=== PATIENT | female | born 1950 | race Caucasian/White ===

== ENCOUNTER 2023-03-02 18:27 | Inpatient (IN) | payer OTHER ==
[~2023-03-02] VITALS: Ht 160 cm; Wt 74.0 kg
[2023-03-02 19:17] LABS: Basophils # (auto) 0 10 ^3/uL (0-0.2); Basophils % (auto) 0.4 % (0.0-2.0); Eosinophils # (auto) 0.1 10 ^3/uL (0-0.8); Eosinophils % (auto) 0.5 % (0.0-7.0); Hemoglobin 14.7 g/dL (12.2-16.2); Lymphocytes # (auto) 0.5 10 ^3/uL (0.4-5.4); Lymphocytes % (auto) 4.2 % (10.0-50.0); Mean Corpuscular Hemoglobin 30.7 pg (28.0-32.0); Mean Corpuscular Hgb Conc. 32.7 g/dL (32.0-36.0); Monocytes # (auto) 0.5 10 ^3/uL (0-1.3); Neutrophils # (auto) 11.2 10 ^3/uL (1.6-8.6); Neutrophils % (auto) 90.9 % (37.0-80.0); Red Blood Cells 4.78 10^6/uL (4.0-5.20); Red Cell Distribution Width 15.2 % (11.8-14.3); White Blood Cell 12.3 10^3/uL (4.4-10.8)
[2023-03-02 19:30] VITALS: PULSE 91; RESP 17; O2SAT 97
[2023-03-02 19:32] LABS: INR 1.04 (0.9-1.15); Prothrombin Time 10.9 sec (9.3-11.8)
[2023-03-02 19:39] LABS: Alanine Aminotransferase 11 U/L (7-40); Albumin 4.5 g/dL (3.2-4.8); Alkaline Phosphatase 142 U/L (46-116); Anion Gap 9 (5-15); Aspartate Aminotransferase 18 U/L (13-40); BUN/Creatinine Ratio 13.3 (10.0-20.0); Bilirubin, Total 0.9 mg/dL (0.2-1.0); Blood Urea Nitrogen 8 mg/dL (9-23); Calcium 10.1 mg/dL (8.5-10.1); Carbon Dioxide 27 mmol/L (20-30); Chloride 104 mmol/L (98-107); Glucose 210 mg/dL (74-106); Potassium 3.2 mmol/L (3.5-5.1); Sodium 140 mmol/L (136-145); Total Protein 6.9 g/dL (5.7-8.2)
[2023-03-02] MEDS ORDERED: NITROGLYCERIN 0.4 MG SL TAB SL PRN (22:30)
[2023-03-02] MEDS ORDERED: ONDANSETRON HCL 4 MG/2 ML VIAL IV PRN (22:30)
[2023-03-02] MEDS ORDERED: HYDROmorphone HCL 2 MG/ML VL/or syr IV PRN (22:30)
[2023-03-02] MEDS ORDERED: DOCUSATE SOD 100 MG CAP PO PRN (22:30)
[2023-03-02] MEDS ORDERED: DEXTROSE (50%) 50ML SYRG IV ONE (22:30)
[2023-03-03] VITALS (8 sets, daily range): BP systolic 138–170; BP diastolic 75–86; PULSE 69–105; RESP 16–22; TEMP 98.2–99.4; O2SAT 93–97
[2023-03-03] MEDS ORDERED: ONDANSETRON HCL 4 MG/2 ML VIAL IV ONE (00:30)
[2023-03-03] MEDS ORDERED: HYDROmorphone HCL 2 MG/ML VL/or syr IV ONE (00:30)
[2023-03-03] MEDS: SODIUM CHLORIDE 0.9% 1,000 ML IV SCH ×2 (00:30→15:10)
[2023-03-03] MEDS ORDERED: ALLO300T2 PO (03:20)
[2023-03-03] MEDS ORDERED: LORA-1121 PO (03:20)
[2023-03-03] MEDS ORDERED: ERGO1CAP12 PO (03:20)
[2023-03-03] MEDS ORDERED: METO-159 PO (03:20)
[2023-03-03] MEDS ORDERED: OXYC20TA72 PO (03:20)
[2023-03-03] MEDS ORDERED: REPA0.5T5 PO (03:20)
[2023-03-03] MEDS ORDERED: PANT40T PO (03:20)
[2023-03-03] MEDS ORDERED: CLOP75TA70 PO (03:20)
[2023-03-03] MEDS ORDERED: EMPA1TAB3 PO (03:20)
[2023-03-03] MEDS ORDERED: ATOR-47 PO (03:20)
[2023-03-03] MEDS ORDERED: ASPI81CH59 PO (03:21)
[2023-03-03] MEDS ORDERED: POTASSIUM CHL 20 Meq TABLET PO ONE (04:30)
[2023-03-03] MEDS: HYDROmorphone HCL 2 MG/ML VL/or syr IV PRN ×5 (06:28→21:03)
[2023-03-03] MEDS ORDERED: InsuLIN REG 1unit/0.01ml Soln (100units/ml) SC ONE (07:00)
[2023-03-03] MEDS ORDERED: ACCU-CHEK COMFORT CURVE STRIP VI ONE (07:00)
[2023-03-03 07:19] LABS: Basophils # (auto) 0 10 ^3/uL (0-0.2); Basophils % (auto) 0.4 % (0.0-2.0); Eosinophils # (auto) 0.3 10 ^3/uL (0-0.8); Eosinophils % (auto) 2.7 % (0.0-7.0); Hemoglobin 14.2 g/dL (12.2-16.2); Lymphocytes # (auto) 0.9 10 ^3/uL (0.4-5.4); Lymphocytes % (auto) 9.3 % (10.0-50.0); Mean Corpuscular Hemoglobin 31.3 pg (28.0-32.0); Mean Corpuscular Volume 95.1 fL (80.0-100.0); Monocytes # (auto) 0.7 10 ^3/uL (0-1.3); Monocytes % (auto) 7.8 % (0.0-12.0); Neutrophils # (auto) 7.4 10 ^3/uL (1.6-8.6); Neutrophils % (auto) 79.8 % (37.0-80.0); Red Blood Cells 4.53 10^6/uL (4.0-5.20); Red Cell Distribution Width 15.3 % (11.8-14.3); White Blood Cell 9.3 10^3/uL (4.4-10.8)
[2023-03-03 07:26] LABS: Alkaline Phosphatase 119 U/L (46-116); Anion Gap 11 (5-15); Aspartate Aminotransferase 19 U/L (13-40); Bilirubin, Total 1.5 mg/dL (0.2-1.0); Calcium 9.6 mg/dL (8.5-10.1); Carbon Dioxide 24 mmol/L (20-30); Chloride 104 mmol/L (98-107); Cholesterol 131 mg/dL (< 200); Glucose 134 mg/dL (74-106); HDL Cholesterol 40 mg/dL (40-59); LDL Cholesterol 68 mg/dL (< 100); Potassium 3.1 mmol/L (3.5-5.1); Sodium 139 mmol/L (136-145); Total Protein 6.3 g/dL (5.7-8.2); Triglycerides 190 mg/dL (< 150)
[2023-03-03 07:29] LABS: Alanine Aminotransferase < 9 U/L (7-40); BUN/Creatinine Ratio 11.6 (10.0-20.0); Blood Urea Nitrogen < 5 mg/dL (9-23)
[2023-03-03] MEDS: ENOXAPARIN SOD 40 MG/0.4 ML SYRINGE SC SCH ×2 (09:50→10:06)
[2023-03-03] MEDS: CYCLOBENZAPRINE HCL 10 MG TAB PO PRN ×2 (10:13→18:50)
[2023-03-03] MEDS: HYDROcodone-ACET 5/325MG TAB PO PRN ×3 (11:00→23:29)
[2023-03-03] MEDS ORDERED: Ensure HIGH Protein Chocolate 8oz Bottle PO SCH (12:00)
[2023-03-03] MEDS: Glucerna Carbsteady SHAKE Vanilla 8oz PO SCH ×2 (12:00→18:37)
[2023-03-03] MEDS ORDERED: DEXTROSE (50%) 50ML SYRG IV PRN (18:15)
[2023-03-03] MEDS ORDERED: METOPROLOL TARTRATE 50 MG TAB ONE (21:13)
[2023-03-03] MEDS: METOPROLOL TARTRATE 50 MG TAB PO SCH (21:14)
[2023-03-03] MEDS: InsuLIN REG 1unit/0.01ml Soln (100units/ml) SC SCH (22:00)
[2023-03-03] MEDS: ACCU-CHEK COMFORT CURVE STRIP VI SCH (22:00)
[2023-03-04] VITALS (7 sets, daily range): BP systolic 141–165; BP diastolic 80; PULSE 72–97; RESP 18–22; TEMP 98.1–98.9; O2SAT 94–99
[2023-03-04] MEDS: HYDROmorphone HCL 2 MG/ML VL/or syr IV PRN ×6 (00:58→20:05)
[2023-03-04] MEDS: CYCLOBENZAPRINE HCL 10 MG TAB PO PRN ×2 (03:20→12:54)
[2023-03-04] MEDS: InsuLIN REG 1unit/0.01ml Soln (100units/ml) SC SCH ×4 (06:09→22:02)
[2023-03-04] MEDS: ACCU-CHEK COMFORT CURVE STRIP VI SCH ×4 (06:09→21:55)
[2023-03-04] MEDS: HYDROcodone-ACET 5/325MG TAB PO PRN ×3 (06:26→21:52)
[2023-03-04] MEDS: Glucerna Carbsteady SHAKE Vanilla 8oz PO SCH ×3 (08:00→17:24)
[2023-03-04] MEDS: ENOXAPARIN SOD 40 MG/0.4 ML SYRINGE SC SCH (10:00)
[2023-03-04] MEDS: ATORVASTATIN 20 MG TAB PO SCH (10:14)
[2023-03-04] MEDS: SODIUM CHLORIDE 0.9% 1,000 ML IV SCH (10:14)
[2023-03-04] MEDS: METOPROLOL TARTRATE 50 MG TAB PO SCH ×2 (10:14→21:49)
[2023-03-04] MEDS ORDERED: ceFAZolin 2 GM/D5W100ml 100 ML IV ONE (14:14)
[2023-03-04] MEDS ORDERED: EPINEPHrine HCL 1 MG/1 ML AMP ONE (14:23)
[2023-03-04] MEDS ORDERED: ONDANSETRON HCL 4 MG/2 ML VIAL ONE (14:23)
[2023-03-04] MEDS ORDERED: DexAMETHasone SOD PHOS 10MG/1ML VIAL INJ ONE (14:23)
[2023-03-04] MEDS ORDERED: GLYCOPYRROLATE 0.2 MG/ML 1ML VIAL ONE (14:23)
[2023-03-04] MEDS ORDERED: PROPOFOL 10 MG/ML 20 ML IV ONE (14:23)
[2023-03-04] MEDS ORDERED: LIDOCAINE 2% (LOCAL ANESTH.) PF 5ml SDV ONE (14:23)
[2023-03-04] MEDS ORDERED: KETOROLAC TROMETH 30 MG/ML 1ML VIAL ONE (14:23)
[2023-03-04] MEDS ORDERED: SODIUM CHLORIDE LOCK 10 ML ONE (14:28)
[2023-03-04] MEDS ORDERED: DexAMETHasone SOD PHOS 4 MG/1ML SDV INJ ONE (14:32)
[2023-03-04] MEDS ORDERED: MIDAZOLAM HCL 2MG/2ML 2ml VIAL (1mg/ml) ONE (14:40)
[2023-03-04] MEDS ORDERED: LIDOCAINE 2% JELLY 11ml (GLYDO) ONE (14:56)
[2023-03-04] MEDS ORDERED: fentaNYL CITRATE 100 MCG/2 ML VL ONE (15:13)
[2023-03-04] MEDS ORDERED: HYDROmorphone HCL 2 MG/ML VL/or syr ONE (16:14)
[2023-03-04] MEDS ORDERED: FLUMAZENIL 0.1 MG/ML INJ 10ML MDV IV PRN (16:15)
[2023-03-04] MEDS ORDERED: hydrALAZINE HCL 20 MG/ML VL IV PRN ×2 (16:15→17:30)
[2023-03-04] MEDS ORDERED: fentaNYL CITRATE 100 MCG/2 ML VL IV PRN (16:15)
[2023-03-04] MEDS ORDERED: ePHEDrine SULFATE 50 MG/ML AMP IV PRN (16:15)
[2023-03-04] MEDS ORDERED: NALOXONE HCL 0.4 MG/ML VIAL IV PRN (16:15)
[2023-03-04] MEDS ORDERED: LABETALOL HCL 5 MG/ML 4ML SYRINGE IV PRN (16:15)
[2023-03-04] MEDS ORDERED: ONDANSETRON HCL 4 MG/2 ML VIAL IV PRN (16:15)
[2023-03-04] MEDS ORDERED: oxyCODONE HCL 5MG TAB PO PRN (16:15)
[2023-03-04] MEDS ORDERED: ceFAZolin 1GM/50ML 50 ML IV ONE (21:41)
[2023-03-04] MEDS: ceFAZolin 1GM/50ML 50 ML IV SCH (21:51)
[2023-03-05] VITALS (8 sets, daily range): BP systolic 150–159; BP diastolic 74–86; PULSE 68–100; RESP 16–20; TEMP 96.8–98.6; O2SAT 94–98
[2023-03-05] MEDS: SODIUM CHLORIDE 0.9% 1,000 ML IV SCH ×2 (00:30→21:45)
[2023-03-05] MEDS: CYCLOBENZAPRINE HCL 10 MG TAB PO PRN ×3 (00:51→21:40)
[2023-03-05] MEDS: HYDROmorphone HCL 2 MG/ML VL/or syr IV PRN ×6 (00:52→23:23)
[2023-03-05] MEDS: HYDROcodone-ACET 5/325MG TAB PO PRN ×4 (02:56→21:40)
[2023-03-05 06:12] LABS: Basophils # (auto) 0 10 ^3/uL (0-0.2); Eosinophils # (auto) 0 10 ^3/uL (0-0.8); Hematocrit 38.1 % (36.0-46.0); Hemoglobin 12.8 g/dL (12.2-16.2); Lymphocytes # (auto) 0.5 10 ^3/uL (0.4-5.4); Mean Corpuscular Hemoglobin 31.6 pg (28.0-32.0); Mean Corpuscular Hgb Conc. 33.5 g/dL (32.0-36.0); Mean Corpuscular Volume 94.3 fL (80.0-100.0); Monocytes # (auto) 0.4 10 ^3/uL (0-1.3); Monocytes % (auto) 4.4 % (0.0-12.0); Neutrophils # (auto) 7.9 10 ^3/uL (1.6-8.6); Neutrophils % (auto) 89.6 % (37.0-80.0); Red Blood Cells 4.04 10^6/uL (4.0-5.20); Red Cell Distribution Width 15.1 % (11.8-14.3); White Blood Cell 8.8 10^3/uL (4.4-10.8)
[2023-03-05] MEDS ORDERED: ceFAZolin 1GM/50ML 50 ML IV ONE ×2 (06:18→13:56)
[2023-03-05] MEDS: ACCU-CHEK COMFORT CURVE STRIP VI SCH ×4 (06:20→21:40)
[2023-03-05] MEDS: ceFAZolin 1GM/50ML 50 ML IV SCH ×2 (06:20→13:59)
[2023-03-05] MEDS: InsuLIN REG 1unit/0.01ml Soln (100units/ml) SC SCH ×4 (06:27→21:44)
[2023-03-05] MEDS: Glucerna Carbsteady SHAKE Vanilla 8oz PO SCH ×3 (07:38→17:42)
[2023-03-05] MEDS: ATORVASTATIN 20 MG TAB PO SCH (09:45)
[2023-03-05] MEDS: METOPROLOL TARTRATE 50 MG TAB PO SCH ×2 (09:46→21:40)
[2023-03-05] MEDS: ENOXAPARIN SOD 40 MG/0.4 ML SYRINGE SC SCH (09:46)
[2023-03-05] MEDS ORDERED: EMPAGLIFLOZIN 10 MG TAB ONE (11:50)
[2023-03-05] MEDS: EMPAGLIFLOZIN 10 MG TAB PO SCH (12:02)
[2023-03-06] VITALS (7 sets, daily range): BP systolic 122–163; BP diastolic 64–82; PULSE 69–86; RESP 16–19; TEMP 97.8–98.6; O2SAT 94–97
[2023-03-06] MEDS: HYDROcodone-ACET 5/325MG TAB PO PRN ×4 (02:51→23:13)
[2023-03-06] MEDS: HYDROmorphone HCL 2 MG/ML VL/or syr IV PRN ×4 (04:46→20:47)
[2023-03-06] MEDS: CYCLOBENZAPRINE HCL 10 MG TAB PO PRN ×2 (06:29→15:01)
[2023-03-06] MEDS: ACCU-CHEK COMFORT CURVE STRIP VI SCH ×4 (06:29→20:52)
[2023-03-06] MEDS: InsuLIN REG 1unit/0.01ml Soln (100units/ml) SC SCH ×4 (06:53→20:54)
[2023-03-06] MEDS: Glucerna Carbsteady SHAKE Vanilla 8oz PO SCH ×3 (07:45→17:29)
[2023-03-06] MEDS: ENOXAPARIN SOD 40 MG/0.4 ML SYRINGE SC SCH (09:14)
[2023-03-06] MEDS: ATORVASTATIN 20 MG TAB PO SCH (09:15)
[2023-03-06] MEDS: METOPROLOL TARTRATE 50 MG TAB PO SCH ×2 (09:16→20:54)
[2023-03-06] MEDS: EMPAGLIFLOZIN 10 MG TAB PO SCH (09:16)
[2023-03-06] MEDS ORDERED: amLODIPine BESYLATE 5 MG TAB PO ONE (14:00)
[2023-03-06 15:14] LABS: Albumin 3.7 g/dL (3.2-4.8); Alkaline Phosphatase 88 U/L (46-116); Anion Gap 6 (5-15); Aspartate Aminotransferase 15 U/L (13-40); Bilirubin, Total 0.9 mg/dL (0.2-1.0); Blood Urea Nitrogen 11 mg/dL (9-23); Carbon Dioxide 28 mmol/L (20-30); Chloride 111 mmol/L (98-107); Glucose 116 mg/dL (74-106); Potassium 3.1 mmol/L (3.5-5.1); Total Protein 5.7 g/dL (5.7-8.2)
[2023-03-06 15:15] LABS: Alanine Aminotransferase < 9 U/L (7-40); Sodium 145 mmol/L (136-145)
[2023-03-07] VITALS (7 sets, daily range): BP systolic 123–149; BP diastolic 69–76; PULSE 77–88; RESP 16–20; TEMP 98.2–98.8; O2SAT 91–96
[2023-03-07] MEDS: HYDROmorphone HCL 2 MG/ML VL/or syr IV PRN ×6 (01:31→20:41)
[2023-03-07] MEDS: ACCU-CHEK COMFORT CURVE STRIP VI SCH ×4 (06:04→20:41)
[2023-03-07] MEDS: InsuLIN REG 1unit/0.01ml Soln (100units/ml) SC SCH ×4 (06:08→21:46)
[2023-03-07] MEDS: Glucerna Carbsteady SHAKE Vanilla 8oz PO SCH ×3 (08:00→18:00)
[2023-03-07] MEDS: EMPAGLIFLOZIN 10 MG TAB PO SCH (09:51)
[2023-03-07] MEDS: SODIUM CHLORIDE 0.9% 1,000 ML IV SCH ×2 (09:52→19:10)
[2023-03-07] MEDS: METOPROLOL TARTRATE 50 MG TAB PO SCH ×2 (09:53→20:41)
[2023-03-07] MEDS: amLODIPine BESYLATE 5 MG TAB PO SCH (09:53)
[2023-03-07] MEDS: ATORVASTATIN 20 MG TAB PO SCH (09:54)
[2023-03-07] MEDS: ENOXAPARIN SOD 40 MG/0.4 ML SYRINGE SC SCH (09:54)
[2023-03-08] MEDS: HYDROcodone-ACET 5/325MG TAB PO PRN ×3 (00:38→15:00)
[2023-03-08] MEDS: HYDROmorphone HCL 2 MG/ML VL/or syr IV PRN (05:04)
[2023-03-08 05:25] VITALS: BP 158/89; PULSE 76; RESP 19; TEMP 98.4; O2SAT 94
[2023-03-08] MEDS: ACCU-CHEK COMFORT CURVE STRIP VI SCH ×2 (05:58→11:38)
[2023-03-08] MEDS: InsuLIN REG 1unit/0.01ml Soln (100units/ml) SC SCH ×2 (05:58→11:41)
[2023-03-08 08:00] VITALS: PULSE 71; PULSE 86; RESP 16; O2SAT 96
[2023-03-08] MEDS: Glucerna Carbsteady SHAKE Vanilla 8oz PO SCH ×2 (08:00→12:00)
[2023-03-08 09:00] VITALS: BP 146/76; PULSE 91; RESP 18; TEMP 98.2; O2SAT 97
[2023-03-08] MEDS: ATORVASTATIN 20 MG TAB PO SCH (10:06)
[2023-03-08] MEDS: METOPROLOL TARTRATE 50 MG TAB PO SCH (10:06)
[2023-03-08] MEDS: EMPAGLIFLOZIN 10 MG TAB PO SCH (10:07)
[2023-03-08] MEDS: amLODIPine BESYLATE 5 MG TAB PO SCH (10:07)
[2023-03-08] MEDS: ENOXAPARIN SOD 40 MG/0.4 ML SYRINGE SC SCH (10:08)
[2023-03-08] MEDS: SODIUM CHLORIDE 0.9% 1,000 ML IV SCH (11:50)
[2023-03-08 13:19] VITALS: BP 146/76; PULSE 91; RESP 19; TEMP 36.8; O2SAT 92
== END 2023-03-08 15:45 | DRG 482 ==
LOC: ER 18:27 → TELE 22:37 → TELE-CENTR 03-03 03:03
PROVIDERS: ADMIT Nurse Practitioner; ATTEND Nurse Practitioner
PROC: 0QS704Z Reposition Left Upper Femur with Internal Fixation Device, Open Approach (ICD-10-PCS; principal; 2023-03-04 15:01)
DX: S72.142A Displaced intertrochanteric fracture of left femur, initial encounter for closed fracture (principal); M10.9 Gout, unspecified; E11.65 Type 2 diabetes mellitus with hyperglycemia; I25.10 Atherosclerotic heart disease of native coronary artery without angina pectoris; M19.90 Unspecified osteoarthritis, unspecified site; W18.39XA Other fall on same level, initial encounter; I10 Essential (primary) hypertension; E78.5 Hyperlipidemia, unspecified; G89.29 Other chronic pain; K80.20 Calculus of gallbladder without cholecystitis without obstruction; Z87.442 Personal history of urinary calculi; I25.2 Old myocardial infarction; Z79.02 Long term (current) use of antithrombotics/antiplatelets; Z79.82 Long term (current) use of aspirin; Z79.84 Long term (current) use of oral hypoglycemic drugs; Z79.899 Other long term (current) drug therapy; Z82.0 Family history of epilepsy and other diseases of the nervous system; Z82.49 Family history of ischemic heart disease and other diseases of the circulatory system; Z85.72 Personal history of non-Hodgkin lymphomas; Z98.41 Cataract extraction status, right eye; Y93.89 Activity, other specified; Y92.89 Other specified places as the place of occurrence of the external cause; Y99.8 Other external cause status; Z88.5 Allergy status to narcotic agent; Z88.2 Allergy status to sulfonamides
CPT/HCPCS: 36415; 70450; 71045; 71250; 72125; 73120; 73502; 73700; 74176; 76000; 80053; 80061; 82962; 83036; 83880; 85025; 85610; 85730; 93306; 97110; 97116; 97163; 97530; A4565; G0378; J0171; J1100; J1815; J1885; J2001; J2250; J2405; J2704

== ENCOUNTER 2023-06-27 09:58 | Inpatient (IN) | payer OTHER ==
[~2023-06-27] VITALS: Ht 162.6 cm; Wt 69.8 kg
[2023-06-27] VITALS (9 sets, daily range): BP systolic 93–114; BP diastolic 51–68; PULSE 90–122; RESP 11–22; TEMP 98.1–98.2; O2SAT 96
[~2023-06-27 09:58] MED LIST: ALLO300T2 PO; ASPI81CH59 PO; ATOR-47 PO; CLOP75TA70 PO; EMPA1TAB3 PO; ERGO1CAP12 PO; LORA-1121 PO; METO-159 PO; OXYC20TA72 PO; PANT40T PO; REPA0.5T5 PO
[2023-06-27] MEDS: levoFLOXacin 750MG 150 ML IV ONE ×2 (10:49→10:56)
[2023-06-27] MEDS: VANCOMYCIN 1GM/200ML 200 ML IV ONE ×2 (10:49→11:00)
[2023-06-27] MEDS: SODIUM CHLORIDE 0.9% 2,000 ML IV ONE (10:56)
[2023-06-27 11:15] LABS: Basophils # (auto) 0 10 ^3/uL (0-0.2); Eosinophils # (auto) 0 10 ^3/uL (0-0.8); Lymphocytes # (auto) 0.2 10 ^3/uL (0.4-5.4); Monocytes # (auto) 0.5 10 ^3/uL (0-1.3); Red Blood Cells 2.35 10^6/uL (4.0-5.20)
[2023-06-27 11:30] LABS: Eosinophils % (auto) 0.7 % (0.0-7.0); Hematocrit 22.6 % (36.0-46.0); Lymphocytes % (auto) 2.6 % (10.0-50.0); Mean Corpuscular Hemoglobin 29.3 pg (28.0-32.0); Mean Corpuscular Hgb Conc. 30.6 g/dL (32.0-36.0); Mean Corpuscular Volume 95.9 fL (80.0-100.0); Monocytes % (auto) 7.8 % (0.0-12.0); Neutrophils # (auto) 5.9 10 ^3/uL (1.6-8.6); Neutrophils % (auto) 88.9 % (37.0-80.0); Red Cell Distribution Width 17.9 % (11.8-14.3); White Blood Cell 6.6 10^3/uL (4.4-10.8)
[2023-06-27 11:35] LABS: Hemoglobin 6.9 g/dL (12.2-16.2)
[2023-06-27 11:43] LABS: INR 1.48 (0.9-1.15); Partial Thromboplastin Time 47.6 SEC (24.5-34.5); Prothrombin Time 15.1 sec (9.3-11.8)
[2023-06-27 12:00] LABS: Amphetamine Screen, Urine Neg (NEGATIVE); Barbiturate Scree,Urine Neg (NEGATIVE); Benzodiazephine Screen, Urine Neg (NEGATIVE); Cannabinoid Screen, Urine Neg (NEGATIVE); Cocaine Screen, Urine Neg (NEGATIVE); Opiate Scree,Urine Neg (NEGATIVE); Phencyclidine Screen, Urine Neg (NEGATIVE)
[2023-06-27 12:10] LABS: Urine Bacteria FEW /hpf (None Seen); Urine Blood 1+ /uL (Negative); Urine Clarity Clear (Clear); Urine Color Light-Yellow (Yellow); Urine Hyaline Cast FEW /lpf (0 - 2); Urine Protein, UAD 1+ (Negative); Urine Urobilinogen Normal (Negative); Urine WBC 26 /hpf (0 - 5); Urine pH 5.5 (5.0-9.0)
[2023-06-27 12:29] LABS: Chloride 101 mmol/L (98-107); Potassium 3.3 mmol/L (3.5-5.1); Sodium 141 mmol/L (136-145)
[2023-06-27 12:32] LABS: Anion Gap 20 (5-15); Calcium 9.3 mg/dL (8.5-10.1); Carbon Dioxide 20 mmol/L (20-30)
[2023-06-27 12:37] LABS: Alkaline Phosphatase 118 U/L (46-116); Blood Alcohol < 3.0 mg/dL (<10); Blood Urea Nitrogen 41 mg/dL (9-23); Glucose 362 mg/dL (74-106)
[2023-06-27 12:39] LABS: Albumin 3.6 g/dL (3.2-4.8); Aspartate Aminotransferase 13 U/L (13-40); Bilirubin, Total 0.6 mg/dL (0.2-1.0); Total Protein 5.6 g/dL (5.7-8.2)
[2023-06-27 12:43] LABS: Alanine Aminotransferase < 9 U/L (7-40)
[2023-06-27 14:12] LABS: Triglycerides 516 mg/dL (< 150)
[2023-06-27 14:14] LABS: Cholesterol 219 mg/dL (< 200); HDL Cholesterol 17 mg/dL (40-59)
[2023-06-27] MEDS ORDERED: MORPHINE SULFATE INJ 2 MG/ml SYRG IV PRN (16:45)
[2023-06-27] MEDS: SODIUM CHLORIDE 0.9% 1,000 ML IV SCH ×2 (16:45→23:00)
[2023-06-27] MEDS ORDERED: DEXTROSE (50%) 50ML SYRG IV PRN ×2 (16:45→19:00)
[2023-06-27] MEDS ORDERED: NITROGLYCERIN 0.4 MG SL TAB SL PRN (16:45)
[2023-06-27] MEDS: InsuLIN REG 1unit/0.01ml Soln (100units/ml) SC SCH (17:27)
[2023-06-27] MEDS: ACCU-CHEK COMFORT CURVE STRIP VI SCH ×2 (17:27→19:00)
[2023-06-27] MEDS: InsuLIN REG 1unit/0.01ml Soln (100units/ml) ONE (17:29)
[2023-06-27] MEDS: PIPERACILLIN-TAZOB 3.375GM 100 ML IV ONE (17:30)
[2023-06-27] MEDS: OXYCODONE W/ ACETAMINOPHEN 5/325MG TABLET PO ONE (17:32)
[2023-06-27] MEDS ORDERED: POTASSIUM CHL 20MEQ/100ML 200 ML IV PRN (19:00)
[2023-06-27] MEDS: INSULIN DRIP 100 UNIT/100ML 100 ML IV SCH (19:00)
[2023-06-27 19:14] LABS: Magnesium 2.6 mg/dL (1.6-2.6)
[2023-06-27 19:16] LABS: Phosphorus 3.2 mg/dL (2.4-5.1)
[2023-06-27] MEDS: PANTOPRAZOLE 40mg/50ML NS AE 50 ML IV ONE (19:48)
[2023-06-27 20:17] LABS: Base Excess -8.4 mmol/L (-2.0-2.0)
[2023-06-27] MEDS: D5W/SOD CHL 0.45%/KCL 20MEQ 1,000 ML IV ONE (20:23)
[2023-06-27] MEDS: D5W/SOD CHL 0.45%/KCL 20MEQ 1,000 ML IV SCH (20:24)
[2023-06-27] MEDS: MAGNESIUM SULFATE 1GM/100ML 100 ML IV ONE (20:32)
[2023-06-27] MEDS: MAGNESIUM SULFATE 1GM/100ML 200 ML IV ONE (20:33)
[2023-06-27] MEDS: INSULIN LANTUS (GLARGINE) 1 /0.01ml (100units/ml) SC ONE ×2 (20:54→20:57)
[2023-06-27] MEDS: INSULIN DRIP 100 UNIT/100ML 100 ML IV ONE (20:55)
[2023-06-27] MEDS ORDERED: LORazepam 2MG/ML-1ML VIAL IV PRN (22:00)
[2023-06-28] VITALS: BP 102/53; PULSE 96; RESP 21; TEMP 98
[2023-06-28 00:45] VITALS: BP 102/55; PULSE 96; RESP 17; TEMP 98.1
[2023-06-28] MEDS: SODIUM CHLORIDE 0.9% 1,000 ML IV SCH (01:07)
[2023-06-28] MEDS: INSULIN DRIP 100 UNIT/100ML 100 ML IV SCH (01:27)
[2023-06-28] MEDS: ACCU-CHEK COMFORT CURVE STRIP VI SCH ×2 (01:46→18:19)
[2023-06-28] MEDS: D5W/SOD CHL 0.45%/KCL 20MEQ 1,000 ML IV ONE ×2 (01:59→07:34)
[2023-06-28] MEDS: PIPERACILLIN-TAZOB 3.375GM 100 ML IV ONE (02:03)
[2023-06-28] MEDS: PIPERACILLIN-TAZOB 3.375GM 100 ML IV SCH (02:09)
[2023-06-28 06:11] LABS: Albumin 3.2 g/dL (3.2-4.8); Alkaline Phosphatase 110 U/L (46-116); Anion Gap 11 (5-15); Aspartate Aminotransferase 11 U/L (13-40); Calcium 9.5 mg/dL (8.7-10.4); Carbon Dioxide 21 mmol/L (20-30); Glucose 222 mg/dL (74-106); Potassium 2.9 mmol/L (3.5-5.1)
[2023-06-28 06:12] LABS: Bilirubin, Total 0.5 mg/dL (0.2-1.0); Total Protein 5.6 g/dL (5.7-8.2)
[2023-06-28 06:19] LABS: Sodium 146 mmol/L (136-145)
[2023-06-28 06:20] LABS: Alanine Aminotransferase < 9 U/L (7-40); Chloride 114 mmol/L (98-107)
[2023-06-28] MEDS: POTASSIUM CHL 20MEQ/100ML 100 ML IV ONE (06:34)
[2023-06-28] MEDS: POTASSIUM CHL 20MEQ/100ML 100 ML IV PRN (06:38)
[2023-06-28 06:56] LABS: BUN/Creatinine Ratio 19.5 (10.0-20.0); Blood Urea Nitrogen 16 mg/dL (9-23)
[2023-06-28 07:03] LABS: Basophils # (auto) 0 10 ^3/uL (0-0.2); Basophils % (auto) 0.1 % (0.0-2.0); Eosinophils # (auto) 0.1 10 ^3/uL (0-0.8); Eosinophils % (auto) 0.6 % (0.0-7.0); Hematocrit 40.4 % (36.0-46.0); Lymphocytes # (auto) 0.2 10 ^3/uL (0.4-5.4); Lymphocytes % (auto) 1.8 % (10.0-50.0); Mean Corpuscular Hemoglobin 29.1 pg (28.0-32.0); Mean Corpuscular Hgb Conc. 32.2 g/dL (32.0-36.0); Mean Corpuscular Volume 90.4 fL (80.0-100.0); Monocytes # (auto) 0.3 10 ^3/uL (0-1.3); Monocytes % (auto) 3.6 % (0.0-12.0); Neutrophils # (auto) 7.8 10 ^3/uL (1.6-8.6); Neutrophils % (auto) 93.9 % (37.0-80.0); Nucleated Red Blood Cells % 0.1 %; Red Blood Cells 4.47 10^6/uL (4.0-5.20); Red Cell Distribution Width 17.9 % (11.8-14.3); White Blood Cell 8.3 10^3/uL (4.4-10.8)
[2023-06-28] MEDS: D5W/SOD CHL 0.45% 1,000 ML IV SCH (10:00)
[2023-06-28] MEDS: INSULIN LANTUS (GLARGINE) 1 /0.01ml (100units/ml) SC SCH (10:00)
[2023-06-28 10:03] LABS: Urine Bacteria None Seen /hpf (None Seen)
[2023-06-28 10:26] LABS: Urine Blood 2+ /uL (Negative); Urine Clarity Clear (Clear); Urine Color Light-Yellow (Yellow); Urine Protein, UAD 1+ (Negative); Urine Urobilinogen Normal (Negative); Urine WBC 50 /hpf (0 - 5); Urine pH 5.5 (5.0-9.0)
[2023-06-28] MEDS: PANTOPRAZOLE 40 MG/10 ML VIAL INJ IV SCH (10:31)
[2023-06-28] MEDS ORDERED: DEXTROSE (50%) 50ML SYRG IV PRN (14:45)
[2023-06-28] MEDS: InsuLIN REG 1unit/0.01ml Soln (100units/ml) SC SCH (18:10)
[2023-06-28 20:02] VITALS: PULSE 66; RESP 18; O2SAT 98
[2023-06-28 21:00] VITALS: BP 111/70; PULSE 66; RESP 18; TEMP 98.1; O2SAT 98
[2023-06-29] VITALS (7 sets, daily range): BP systolic 118–150; BP diastolic 52–70; PULSE 65–87; RESP 16–18; TEMP 97.7–99.2; O2SAT 93–100
[2023-06-29] MEDS: CEFEPIME 2GM/50ML NS 50 ML IV SCH (02:15)
[2023-06-29 15:26] LABS: Alkaline Phosphatase 104 U/L (46-116); Anion Gap 6 (5-15); Aspartate Aminotransferase 17 U/L (13-40); Blood Urea Nitrogen 13 mg/dL (9-23); Calcium 9.6 mg/dL (8.7-10.4); Carbon Dioxide 26 mmol/L (20-30); Chloride 118 mmol/L (98-107); Glucose 175 mg/dL (74-106); Potassium 2.8 mmol/L (3.5-5.1); Sodium 150 mmol/L (136-145)
[2023-06-29 15:28] LABS: Bilirubin, Total 0.6 mg/dL (0.2-1.0); Total Protein 5.2 g/dL (5.7-8.2)
[2023-06-29 15:29] LABS: Alanine Aminotransferase < 9 U/L (7-40)
[2023-06-30] VITALS (8 sets, daily range): BP systolic 132–163; BP diastolic 66–88; PULSE 65–86; RESP 16–20; TEMP 97.4–100.3; O2SAT 95–98
[2023-06-30 05:41] LABS: Hematocrit 41.7 % (36.0-46.0); Hemoglobin 13.6 g/dL (12.2-16.2); Mean Corpuscular Hgb Conc. 32.6 g/dL (32.0-36.0); Red Blood Cells 4.68 10^6/uL (4.0-5.20); Red Cell Distribution Width 18.5 % (11.8-14.3); White Blood Cell 6.1 10^3/uL (4.4-10.8)
[2023-06-30 05:54] LABS: Basophils % (manual) 0 (0.0-2.0); Blast Cells 0; Metamyelocytes % 0; Myelocytes % 0; Promyelocytes % 0; Reactive Lymphocytes 0
[2023-06-30 05:59] LABS: Folate (Folic Acid) 6.39 ng/mL (>5.38)
[2023-06-30 06:53] LABS: Band Neutrophils % (manual) 17; Eosinophils % (manual) 1 (0-7); Lymphocytes % (manual) 3 (10.0-50.0); Monocytes % (manual) 4 (0-12)
[2023-06-30 06:54] LABS: Platelet Estimate Decreased
[2023-06-30] MEDS: cefTRIAXone 2GM/50ML D5W 50 ML IV SCH (10:08)
[2023-06-30 15:57] LABS: Chloride 111 mmol/L (98-107); Sodium 146 mmol/L (136-145)
[2023-06-30 15:58] LABS: Anion Gap 9 (5-15); Calcium 8.9 mg/dL (8.5-10.1); Carbon Dioxide 26 mmol/L (20-30)
[2023-06-30 16:03] LABS: BUN/Creatinine Ratio 24.4 (10.0-20.0); Blood Urea Nitrogen 11 mg/dL (9-23); Glucose 191 mg/dL (74-106)
[2023-06-30] MEDS ORDERED: IOHEXOL 300 MG/ML 100ML BOTTLE IJ ONE (16:05)
[2023-06-30 16:08] LABS: Potassium 2.2 mmol/L (3.5-5.1)
[2023-06-30] MEDS: POTASSIUM CHL 20 Meq TABLET PO ONE (17:23)
[2023-06-30] MEDS: POTASSIUM CHL 20MEQ/100ML 100 ML IV SCH (17:26)
[2023-06-30] MEDS: ACETAMINOPHEN 325 MG TAB PO PRN (21:33)
[2023-06-30] MEDS: APIXABAN 5 MG TAB PO SCH (21:47)
[2023-07-01] VITALS (8 sets, daily range): BP systolic 131–155; BP diastolic 69–79; PULSE 60–77; RESP 16–18; TEMP 97.7–98.1; O2SAT 96–98
[2023-07-01 14:19] LABS: Chloride 107 mmol/L (98-107); Potassium 2.6 mmol/L (3.5-5.1); Sodium 142 mmol/L (136-145)
[2023-07-01 14:20] LABS: Anion Gap 5 (5-15); Calcium 8.5 mg/dL (8.7-10.4); Carbon Dioxide 30 mmol/L (20-30)
[2023-07-01 14:25] LABS: BUN/Creatinine Ratio 30.8 (10.0-20.0); Blood Urea Nitrogen 12 mg/dL (9-23); Glucose 195 mg/dL (74-106)
[2023-07-01] MEDS: POTASSIUM CHLORIDE 60 MEQ, LIDOCAINE 1% (LOCAL ANESTH.) 6 ML in SODIUM CHL 0.9% 500 ML IV ONE (18:41)
[2023-07-02] VITALS (7 sets, daily range): BP systolic 134–145; BP diastolic 68–79; PULSE 75–88; RESP 14–18; TEMP 36.7; O2SAT 92–98
[2023-07-02 07:01] LABS: Hematocrit 42.5 % (36.0-46.0); Hemoglobin 13.7 g/dL (12.2-16.2); Mean Corpuscular Hemoglobin 28.5 pg (28.0-32.0); Mean Corpuscular Hgb Conc. 32.1 g/dL (32.0-36.0); Mean Corpuscular Volume 88.8 fL (80.0-100.0); Red Blood Cells 4.79 10^6/uL (4.0-5.20); Red Cell Distribution Width 17.9 % (11.8-14.3); White Blood Cell 11.1 10^3/uL (4.4-10.8)
[2023-07-02 07:24] LABS: Albumin 2.7 g/dL (3.2-4.8); Alkaline Phosphatase 111 U/L (46-116); Anion Gap 10 (5-15); Aspartate Aminotransferase < 8 U/L (13-40); Bilirubin, Total 0.5 mg/dL (0.2-1.0); Blood Urea Nitrogen 8 mg/dL (9-23); Calcium 8.5 mg/dL (8.5-10.1); Carbon Dioxide 25 mmol/L (20-30); Chloride 108 mmol/L (98-107); Glucose 187 mg/dL (74-106); Sodium 143 mmol/L (136-145); Total Protein 4.4 g/dL (5.7-8.2)
[2023-07-02 07:27] LABS: Basophils % (manual) 0 (0.0-2.0); Blast Cells 0; Eosinophils % (manual) 0 (0-7); Metamyelocytes % 0; Myelocytes % 0; Reactive Lymphocytes 0
[2023-07-02 07:35] LABS: Alanine Aminotransferase < 9 U/L (7-40)
[2023-07-02 07:37] LABS: Potassium 2.5 mmol/L (3.5-5.1)
[2023-07-02] MEDS: POTASSIUM CHL 20 Meq TABLET PO ONE (09:02)
[2023-07-02] MEDS: POTASSIUM CHLORIDE 60 MEQ, LIDOCAINE 1% (LOCAL ANESTH.) 6 ML in SODIUM CHL 0.9% 500 ML IV ONE (09:28)
[2023-07-02 10:17] LABS: Band Neutrophils % (manual) 21; Lymphocytes % (manual) 3 (10.0-50.0); Monocytes % (manual) 4 (0-12); Promyelocytes % 2
[2023-07-02 10:18] LABS: Platelet Estimate Decreased
[2023-07-02] MEDS: MAGNESIUM SULFATE 1GM/100ML 100 ML IV SCH (20:32)
[2023-07-02] MEDS: traZODone HCL 50 MG TAB PO SCH (22:23)
[2023-07-03] VITALS (8 sets, daily range): BP systolic 123–141; BP diastolic 44–91; PULSE 57–79; RESP 16–18; TEMP 97.7–99; O2SAT 94–100
[2023-07-03 05:38] LABS: Calcium 8.7 mg/dL (8.7-10.4); Chloride 109 mmol/L (98-107); Potassium 2.8 mmol/L (3.5-5.1); Sodium 143 mmol/L (136-145)
[2023-07-03 05:39] LABS: Anion Gap 9 (5-15); Carbon Dioxide 25 mmol/L (20-30)
[2023-07-03 05:44] LABS: Glucose 121 mg/dL (74-106)
[2023-07-03 05:45] LABS: BUN/Creatinine Ratio 28.6 (10.0-20.0); Blood Urea Nitrogen 8 mg/dL (9-23); Magnesium 1.5 mg/dL (1.6-2.6)
[2023-07-03 05:46] LABS: Basophils # (auto) 0 10 ^3/uL (0-0.2); Basophils % (auto) 0.1 % (0.0-2.0); Eosinophils # (auto) 0.1 10 ^3/uL (0-0.8); Hematocrit 42.5 % (36.0-46.0); Hemoglobin 13.7 g/dL (12.2-16.2); Lymphocytes # (auto) 0.4 10 ^3/uL (0.4-5.4); Lymphocytes % (auto) 3.2 % (10.0-50.0); Mean Corpuscular Hemoglobin 28.8 pg (28.0-32.0); Mean Corpuscular Hgb Conc. 32.2 g/dL (32.0-36.0); Mean Corpuscular Volume 89.3 fL (80.0-100.0); Monocytes # (auto) 0.5 10 ^3/uL (0-1.3); Neutrophils # (auto) 11.9 10 ^3/uL (1.6-8.6); Neutrophils % (auto) 91.7 % (37.0-80.0); Red Blood Cells 4.76 10^6/uL (4.0-5.20); Red Cell Distribution Width 18.1 % (11.8-14.3)
[2023-07-03] MEDS: POTASSIUM EFFERVESENT TAB 25 MEQ PO ONE (12:17)
[2023-07-03] MEDS ORDERED: POTASSIUM EFFERVESENT TAB 25 MEQ PO ONE (15:00)
[2023-07-03] MEDS: MAGNESIUM SULFATE 1GM/100ML 100 ML IV SCH (16:15)
[2023-07-03] MEDS: POTASSIUM CHL 20 Meq TABLET PO ONE (16:27)
[2023-07-04] VITALS (7 sets, daily range): BP systolic 123–147; BP diastolic 67–74; PULSE 66–80; RESP 17–20; TEMP 97.6–98.2; O2SAT 95–96
[2023-07-04 06:42] LABS: Anion Gap 7 (5-15); Carbon Dioxide 28 mmol/L (20-30); Chloride 108 mmol/L (98-107); Potassium 3.4 mmol/L (3.5-5.1); Sodium 143 mmol/L (136-145)
[2023-07-04 06:43] LABS: Calcium 8.6 mg/dL (8.7-10.4)
[2023-07-04 06:48] LABS: BUN/Creatinine Ratio 25.8 (10.0-20.0); Blood Urea Nitrogen 8 mg/dL (9-23); Glucose 98 mg/dL (74-106)
[2023-07-04] MEDS ORDERED: METF-370 PO (13:48)
[2023-07-04] MEDS ORDERED: APIX5TAB PO (13:48)
[2023-07-04] MEDS ORDERED: LEVO500T91 PO (13:48)
[2023-07-04] MEDS ORDERED: OXYC20TA72 PO (14:19)
[2023-07-04] MEDS ORDERED: GABA-1250 PO (16:00)
[2023-07-04] MEDS: POTASSIUM CHL 20 Meq TABLET PO ONE (17:34)
== END 2023-07-04 20:00 | disposition home health service (06) | DRG 871 ==
LOC: ER 09:58 → EDBD 09:58 → TELE 16:47 → TELE-WESTW 06-28 19:37 → UNDODISIN 07-02 11:32
PROVIDERS: ADMIT Nurse Practitioner; ATTEND Nurse Practitioner
PROC: 30233N1 Transfusion of Nonautologous Red Blood Cells into Peripheral Vein, Percutaneous Approach (ICD-10-PCS; principal; 2023-06-27)
DX: A41.51 Sepsis due to Escherichia coli [E. coli] (principal); E11.10 Type 2 diabetes mellitus with ketoacidosis without coma; G93.41 Metabolic encephalopathy; R65.21 Severe sepsis with septic shock; K29.01 Acute gastritis with bleeding; N39.0 Urinary tract infection, site not specified; C85.90 Non-Hodgkin lymphoma, unspecified, unspecified site; I82.403 Acute embolism and thrombosis of unspecified deep veins of lower extremity, bilateral; D62 Acute posthemorrhagic anemia; D69.6 Thrombocytopenia, unspecified; K80.20 Calculus of gallbladder without cholecystitis without obstruction; E78.00 Pure hypercholesterolemia, unspecified; M10.9 Gout, unspecified; I48.91 Unspecified atrial fibrillation; E86.0 Dehydration; F17.200 Nicotine dependence, unspecified, uncomplicated; I25.10 Atherosclerotic heart disease of native coronary artery without angina pectoris; Z88.5 Allergy status to narcotic agent; Z88.2 Allergy status to sulfonamides; Z79.899 Other long term (current) drug therapy; Z79.82 Long term (current) use of aspirin; I25.2 Old myocardial infarction; Z81.8 Family history of other mental and behavioral disorders; Z79.01 Long term (current) use of anticoagulants
CPT/HCPCS: 36415; 36600; 70450; 70551; 71045; 71260; 74177; 80048; 80053; 80061; 80307; 80320; 81001; 82010; 82378; 82607; 82746; 82805; 82962; 83010; 83036; 83540; 83550; 83605; 83615; 83735; 83880; 83930; 84100; 84132; 84443; 84484; 85007; 85025; 85027; 85379; 85610; 85730; 86850; 86900; 86901; 86920; 87040; 87077; 87086; 87186; 93005; 93306; 93970; 95819; 96365; 96368; 97110; 97116; 97163; 97530; C9113; G0378; J0692; J1815; J1956; J2001; J2543; J3480